=== PATIENT | female | born 1955 | race Caucasian/White ===

== ENCOUNTER 2022-05-25 06:05 | Day surgery (SDC) | payer MEDICARE, OTHER ==
[~2022-05-25] VITALS: Ht 152.4 cm; Wt 113.0 kg
[2022-05-25] MEDS ORDERED: ALBUTEROL SULFATE 2.5 MG/0.5 ML NEB SOLUTION NEB ONE (06:06)
[2022-05-25] MEDS ORDERED: LIDOCAINE 4% 50 ML SOLUTION TP ONE (06:06)
[2022-05-25] MEDS ORDERED: BENZOCAINE 20% 50 MCG/SPRAY 57 GM TP ONE (06:06)
[2022-05-25] MEDS ORDERED: LIDOCAINE 2% 11 ML JELLY TP ONE (06:06)
[2022-05-25] MEDS ORDERED: SODIUM CHLORIDE 0.9% 1,000 ML ONE (06:09)
[2022-05-25] MEDS ORDERED: SODIUM CHLORIDE 0.9% 1,000 ML IV ONE (06:30)
[2022-05-25 06:33] LABS: COVID AG,FIA SOURCE NASAL SWAB
[2022-05-25] MEDS ORDERED: FentaNYL CITRATE PF 100 MCG/2 ML VIAL ONE (07:50)
[2022-05-25] MEDS ORDERED: MIDAZOLAM HCL 5 MG/ML VIAL ONE (07:50)
[2022-05-25] MEDS ORDERED: MethylPREDNISolone SOD SUCC 125 MG/2 ML VIAL ONE (09:12)
[2022-05-25] MEDS ORDERED: MethylPREDNISolone SOD SUCC 40 MG/ML VIAL IVP ONE (09:45)
== END 2022-05-25 11:30 | disposition home or self-care (01) ==
LOC: SURGERY 06:05
PROVIDERS: ATTEND Internal Medicine Critical Care Medicine
DX: J38.4 Edema of larynx (principal); B37.0 Candidal stomatitis; I10 Essential (primary) hypertension; E03.9 Hypothyroidism, unspecified; M17.12 Unilateral primary osteoarthritis, left knee; E78.00 Pure hypercholesterolemia, unspecified; G47.30 Sleep apnea, unspecified; Z85.038 Personal history of other malignant neoplasm of large intestine; Z98.890 Other specified postprocedural states; Z90.49 Acquired absence of other specified parts of digestive tract; Z79.899 Other long term (current) drug therapy; Z20.822 Contact with and (suspected) exposure to COVID-19
CPT/HCPCS: 31623; 87101; 87220; 87070; 88108; 88305; 31624; 94640; 71045; 87015; 87426; 87206; J3010; J2930; J2250; Q9967; J7030; C9803; J7613; Z7610